=== PATIENT | female | born 1990 | race African-American/Black ===

== ENCOUNTER 2016-07-24 23:51 | Emergency (ER) | payer OTHER ==
[2016-07-25] MEDS ORDERED: ALBUTEROL NEBULIZED 2.5 MG/3 ML INHALATION STA (00:58)
--- NOTE | 2016-07-25 01:23 | XR ---
EXAM: XR Chest, 2 Views. CLINICAL HISTORY: Reason: Pain TECHNIQUE: Frontal and lateral views of the chest. COMPARISON: No relevant prior studies available. FINDINGS: Lungs: Mild subtle left lower lobe nodularity, may be mild airspace disease worrisome for pneumonia in the appropriate clinical setting. Pleural space: Unremarkable. No pneumothorax. Heart: Unremarkable. No cardiomegaly. Mediastinum: Unremarkable. Bones/joints: Unremarkable. IMPRESSION: Mild subtle left lower lobe nodularity, may be mild airspace disease worrisome for pneumonia in the appropriate clinical setting.
[2016-07-25 01:27] VITALS: BP 131/69; PULSE 60; RESP 16; TEMP 98.3
--- NOTE | 2016-07-25 01:27 | ED ---
Pediatric HENT HPI - General Chief Complaint: ENT Stated Complaint: Sore throat/vomiting Time Seen by Provider: 07/25/16 00:32 Source: patient, RN notes reviewed, old records reviewed Mode of arrival: ambulatory Limitations: no limitations - History of Present Illness Initial Comments: Patient is a 26 year old female with 2 days of sinus congestion, sore throat, cough, and fever. Patient reports her right ear feels full. Patient reports she has had a productive cough, and had one episode of bloody sputum. She denies any chest pain or shortness of breath. She states that she has a history of sick contacts. She states she has been using mucinex, tylenol, and cough drops. She also vomited one time today. She states that she took work off to day. Last tylenol was 2 hours orior to coming to . She had childhood vaccinations, denies travel history. She denies any abdominal pain, diarrhea, back pain, dysuria. - Related Data Previous Rx's Medication Instructions Recorded Albuterol Inhaler [Ventolin Hfa 1 - 2 puff INHALATION Q6HR PRN #1 07/25/16 Inhaler] inhaler Azithromycin [Zithromax] 250 mg PO DIRECTED #6 tab 07/25/16 Ondansetron Odt [Zofran Odt] 4 mg PO Q8HR PRN #12 tab 07/25/16 Allergies Allergy/AdvReac Type Severity Reaction Status Date / Time Penicillins Allergy Intermediate Swelling Verified 07/25/16 00:01 Review of Systems ROS Statement: Those systems with pertinent positive or pertinent negative responses have been documented in the HPI. ROS Other: All systems not noted in ROS Statement are negative. Past Medical History Past Medical History: No Reported History History of Any Multi-Drug Resistant Organisms: None Reported Past Surgical History: No Surgical Hx Reported Past Psychological History: Anxiety, Depression, PTSD, Schizophrenia Smoking Status: Current every day smoker Past Alcohol Use History: None Reported Past Drug Use History: None Reported General Exam - General Exam Comments Initial Comments: Well appearing 26 year old female, no distress. Limitations: no limitations General appearance: alert, in no apparent distress Head exam: Present: atraumatic, normocephalic, normal inspection Eye exam: Present: normal appearance, PERRL, EOMI. Absent: scleral icterus, conjunctival injection, periorbital swelling ENT exam: Present: normal exam, mucous membranes moist. Absent: normal oropharynx (mildly erythematous oropharynx. ) Neck exam: Present: normal inspection, full ROM. Absent: tenderness, meningismus, lymphadenopathy Respiratory exam: Present: normal lung sounds bilaterally, wheezes (mild wheeze) . Absent: respiratory distress, rales, rhonchi, stridor Cardiovascular Exam: Present: regular rate, normal rhythm, normal heart sounds. Absent: systolic murmur, diastolic murmur, rubs, gallop, clicks GI/Abdominal exam: Present: soft, normal bowel sounds. Absent: distended, tenderness, guarding, rebound, rigid Extremities exam: Present: normal inspection, full ROM, normal capillary refill. Absent: tenderness, pedal edema, joint swelling, calf tenderness Back exam: Present: normal inspection Neurological exam: Present: alert, oriented X3, CN II-XII intact Psychiatric exam: Present: normal affect, normal mood Skin exam: Present: warm, dry, intact, normal color. Absent: rash Course Vital Signs 07/24/16 07/25/16 07/25/16 23:58 01:07 01:15 Temperature 98.6 F Pulse Rate 74 78 84 Respiratory 20 Rate Blood Pressure 130/82 O2 Sat by Pulse 99 Oximetry 07/25/16 01:26 Temperature 98.3 F Pulse Rate 60 Respiratory 16 Rate Blood Pressure 131/69 O2 Sat by Pulse 100 Oximetry Medical Decision Making - Medical Decision Making atient is a 26 year old female with 2 days of sinus congestion, sore throat, cough, and fever. Patient reports her right ear feels full. Patient reports she has had a productive cough, and had one episode of bloody sputum. She denies any chest pain or shortness of breath. She states that she has a history of sick contacts. She states she has been using mucinex, tylenol, and cough drops. She also vomited one time today. CXR shows signs of nodular appearance of pneumonia. influenza test is negative. Patient will be discharged with Zpak, albuterol inhaler, and zofran. Patient given note for work. Patient given referrral for PCP, advised follow up with PCP for repeat CXR for clearance. Patient understands treatment plan and will comply. - Lab Data Lab Results 07/25/16 Range/Units 00:45 Influenza Type A RNA Not Detected (Not Detectd) Influenza Type B (PCR) Not Detected (Not Detectd) - Radiology Data Radiology results: report reviewed mild sublet left lower lobe modularity, may be mild airspace disease worrisome for pneumonia in appropriate clinical setting. Disposition Clinical Impression: Pneumonia Disposition: HOME SELF-CARE Condition: Good Instructions: Community Acquired Pneumonia (ED) Additional Instructions: Rest, increase fluids, and complete prescriptions. Return to emergency Department if any alarming signs or symptoms occur. Follow-up with a primary care provider for repeat imaging after he completed her antibiotics. Prescriptions: Albuterol Inhaler [Ventolin Hfa Inhaler] 1 - 2 puff INHALATION Q6HR PRN #1 inhaler PRN Reason: Cough Azithromycin [Zithromax] 250 mg PO DIRECTED #6 tab Ondansetron Odt [Zofran Odt] 4 mg PO Q8HR PRN #12 tab PRN Reason: Nausea Referrals: Kerri Johnson MD [STAFF PHYSICIAN] - 1-2 days Time of Disposition: 01:48
== END 2016-07-25 02:30 | disposition home or self-care (01) ==
LOC: EC 23:51
DX: J18.9 Pneumonia, unspecified organism (principal); R11.10 Vomiting, unspecified; F17.200 Nicotine dependence, unspecified, uncomplicated; Z88.0 Allergy status to penicillin
CPT/HCPCS: 71020; 87502; 94640; 99284